=== PATIENT | female | born 1990 | race Caucasian/White ===

== ENCOUNTER 2018-07-04 00:10 | Emergency (ER) | payer SELFPAY ==
[~2018-07-04] VITALS: Ht 170.2 cm; Wt 69.0 kg
[~2018-07-04 00:10] MED LIST: CEPH-376 PO; DOCU-131 PO; HYDR-3240 PO; IBUP-1222 PO; METR500T PO; NITR100C PO; PREN1TAB25 PO
[2018-07-04 00:16] VITALS: BP 113/76
--- NOTE | 2018-07-04 01:30 | NUR ---
not in lobby
--- NOTE | 2018-07-04 01:45 | NUR ---
not in lobby
--- NOTE | 2018-07-04 01:58 | NUR ---
not in lobby
== END 2018-07-04 02:01 | disposition left against medical advice (07) ==
LOC: ED 01:55
DX: M79.672 Pain in left foot (principal); Z53.21 Procedure and treatment not carried out due to patient leaving prior to being seen by health care provider